=== PATIENT | female | born 2000 | race Caucasian/White ===

== ENCOUNTER 2024-12-01 20:09 | Emergency (ER) | payer SELFPAY ==
[~2024-12-01] VITALS: Ht 165.1 cm; Wt 49.9 kg
[~2024-12-01 20:09] MED LIST: OMNICEF300 MG PO; Ondansetron4 MG PO
[2024-12-01 20:33] LABS: BILIRUBIN Negative (Negative); BLOOD 1+ (Negative); CLARITY Clear (Clear); COLOR Yellow (Yellow); GLUCOSE Negative (Negative); KETONE Negative (Negative); LEUKO ESTERASE Trace (Negative); NITRITE Negative (Negative); PH 7.5 (4.5-8.0); SPECIFIC GRAVITY <= 1.005 (1.001-1.030)
[2024-12-01 20:49] LABS: BACTERIA TRACE; RBC 31-40 rbc/hpf (0-2)
[2024-12-01] MEDS ORDERED: Ketorolac Tromethamine 30 MG/ML VIAL IM ONE (20:55)
[2024-12-01] MEDS ORDERED: Ciprofloxacin Hydrochloride 500 MG TAB PO ONE (20:55)
[2024-12-01] MEDS ORDERED: CIPRO500 MG PO (20:55)
== END 2024-12-01 21:03 | disposition home or self-care (01) ==
LOC: ED 20:09
PROVIDERS: Internal Medicine
DX: N39.0 Urinary tract infection, site not specified (principal); Z79.899 Other long term (current) drug therapy; Z88.1 Allergy status to other antibiotic agents

== ENCOUNTER 2025-07-18 14:35 | Emergency (ER) | payer SELFPAY ==
[~2025-07-18] VITALS: Ht 165.1 cm; Wt 54.4 kg
[~2025-07-18 14:35] MED LIST changes: +CIPRO500 MG PO
[2025-07-18 15:16] LABS: BILIRUBIN Negative (Negative); BLOOD 1+ (Negative); CLARITY Cloudy (Clear); COLOR Dark Yellow (Yellow); KETONE Negative (Negative); LEUKO ESTERASE 2+ (Negative); NITRITE Positive (Negative); PH 6.5 (4.5-8.0); SPECIFIC GRAVITY 1.020 (1.001-1.030); UROBILINOGEN 1.0 E.U./dl (0.0-1.0)
[2025-07-18 15:27] LABS: EPITHELIAL CELLS 16-20; WBC 41-50 wbc/hpf (0-5)
[2025-07-18 15:28] LABS: BACTERIA 4+
[2025-07-18] MEDS ORDERED: CEPHALEXIN500 M1 PO (15:40)
[2025-07-18] MEDS ORDERED: DERMABOND 1 EA APPL T ONE (15:55)
[2025-07-18] MEDS ORDERED: CEPHALEXIN 500 MG CAP PO ONE (16:00)
== END 2025-07-18 16:01 | disposition home or self-care (01) ==
LOC: ED 14:35
PROVIDERS: Emergency Medicine
DX: S61.215A Laceration without foreign body of left ring finger without damage to nail, initial encounter (principal); N39.0 Urinary tract infection, site not specified; Z88.1 Allergy status to other antibiotic agents; W45.8XXA Other foreign body or object entering through skin, initial encounter; Y93.89 Activity, other specified; Y92.89 Other specified places as the place of occurrence of the external cause; Y99.8 Other external cause status